=== PATIENT | female | born 1945 | race Caucasian/White ===

== ENCOUNTER 2023-06-15 17:15 | Emergency (ER) | payer BC, MEDICARE, OTHER ==
[~2023-06-15] VITALS: Ht 162.6 cm; Wt 66.7 kg
[2023-06-15] MEDS ORDERED: ACETAMINOPHEN ES 500 MG TABLET ONE (19:06)
[2023-06-15] MEDS: ACETAMINOPHEN ES 500 MG TABLET PO ONE (19:19)
[2023-06-15 23:39] VITALS: BP 130/76; TEMP 98.2; O2SAT 97
== END 2023-06-15 23:40 | disposition home or self-care (01) ==
LOC: ER 17:29
DX: R51.9 Headache, unspecified (principal); I10 Essential (primary) hypertension; E78.00 Pure hypercholesterolemia, unspecified; F41.9 Anxiety disorder, unspecified; Z88.0 Allergy status to penicillin; W01.0XXA Fall on same level from slipping, tripping and stumbling without subsequent striking against object, initial encounter; Y93.89 Activity, other specified; Y92.89 Other specified places as the place of occurrence of the external cause; Y99.8 Other external cause status
CPT/HCPCS: 70450-TC; 70486-TC; 72125-TC; 73130-TC